=== PATIENT | male | born 1940 | race Caucasian/White ===

== ENCOUNTER 2022-04-15 14:23 | Emergency (ER) | payer MEDICARE, SELFPAY ==
[2022-04-15 14:37] VITALS: BP 159/80; PULSE 65; RESP 18; TEMP 36.5; O2SAT 99; BMI 28.3
--- NOTE | 2022-04-15 14:51 | DI.CT.S_ITS ---
PROCEDURE: CT HEAD/BRAIN WO CON INDICATIONS: dizzy TECHNIQUE: Noncontrast 4.5 mm thick angled axial sections acquired from the foramen magnum to the vertex, with coronal and sagittal reformats. For radiation dose reduction, the following was used: automated exposure control, adjustment of mA and/or kV according to patient size. COMPARISON: None. FINDINGS: Image quality: Excellent. CSF spaces: Basal cisterns are patent. No extra-axial fluid collections. The ventricles are symmetric in size and shape. Brain: No intracranial bleeds or masses. There is cerebral volume loss for age, with resultant ventricular and sulcal prominence. There are periventricular and deep white matter chronic small vessel ischemic changes. There is intracranial internal carotid artery atherosclerosis. Skull and face: Calvarium and visualized facial bones appear intact, without suspicious lesions. Sinuses: Visualized sinuses and mastoids are clear. IMPRESSION: No acute intracranial finding. Dictated by: Linwood Osborn M.D. on 04/15/2022 at 15:20 Approved by: Linwood Osborn M.D. on 04/15/2022 at 15:21
--- NOTE | 2022-04-15 14:52 | DI.RAD.S_ITS ---
PROCEDURE: XR CHEST 1V INDICATIONS: Dizziness TECHNIQUE: One view of the chest was acquired. COMPARISON: None. FINDINGS: Surgical changes and devices: None. Lungs and pleura: Lungs are clear. No pleural effusions or pneumothorax. Mediastinum: Mediastinal contours appear normal. Heart size is normal. Bones and chest wall: No suspicious bony lesions. Overlying soft tissues appear unremarkable. IMPRESSION: No acute cardiopulmonary process demonstrated radiographically. Dictated by: Linwood Osborn M.D. on 04/15/2022 at 15:21 Approved by: Linwood Osborn M.D. on 04/15/2022 at 15:21
--- NOTE | 2022-04-15 15:02 | ED.DIZZY ---
HPI - Dizziness General Chief Complaint: Dizziness Stated Complaint: headache, vertigo, sent by [facility] Time Seen by Provider: 04/15/22 14:51 Source: patient Mode of arrival: Ambulatory History of Present Illness HPI Narrative: Patient is a 81-year-old male history of hypertension presenting today with dizziness. Says it is worse with position and mostly standing. No numbness tingling or weakness. He thinks it is vertigo though he is never had a history of vertigo. Denies any chest pain palpitations dizziness weakness or difficulty walking. He says it lasted for about 5 hours is very positional. No blurry vision. He is not taken anything for but now that he is in the emergency department his symptoms seem to have improved. No nausea or vomiting. No fever or chills. He is in his normal state of health yesterday. Related Data Allergies Allergy/AdvReac Type Severity Reaction Status Date / Time codeine Allergy Verified 04/15/22 14:48 lisinopril AdvReac Verified 04/15/22 14:48 Review of Systems Review of Systems ROS Unobtainable: All systems reviewed & are unremarkable except as noted in HPI and below Patient History Social History Smoking Status: Never smoker Smoking Status: Never smoker alcohol intake frequency: 3 or more drinks per day Substance Use Type: does not use Exam Initial Vital Signs Initial Vital Signs: Vital Signs Temperature 97.7 F 04/15/22 14:37 Pulse Rate 65 04/15/22 14:37 Respiratory Rate 18 04/15/22 14:37 Blood Pressure 159/80 H 04/15/22 14:37 Pulse Oximetry 99 04/15/22 14:37 Oxygen Delivery Method 04/15/22 14:37 GENERAL: Alert pleasant 81-year-old male and in no acute distress. HEENT: Head atraumatic,EOMI, pupils reactive, face symmetric, moist mucous membranes CARDIOVASCULAR: Regular rate and rhythm without murmurs, rubs or gallops. RESPIRATORY: Breath sounds equal bilaterally, no wheezes rales or rhonchi. ABDOMEN: Soft, nontender. Normoactive bowel sounds all 4 quadrants. No guarding or rebound. EXTREMITIES: Normal range of motion, no clubbing or edema. Neurovascularly intact NEUROLOGICAL: Alert and oriented x4.Normal gait and speech. Cranial nerves II through XII grossly intact. Good cyfdrr-fc-fjkr, good kbbm-au-wvqo, strength equal bilaterally, no dysarthria or aphasia, sensation in tact to soft touch bilaterally, no visual changes, no facial droop SKIN: Warm, dry, no laceration, no petechiae, no rashes or lesions. Scores NIH Stroke Scale Level of Conciousness: Alert, keenly responsive Ask month/age: Answers both questions correctly. Open/close eyes, close hand: Performs both tasks correctly Best gaze horizontal: Normal Visual urrutia: No visual loss Facial palsy: Normal symetrical movement Left arm drift: No drift for full 10 sec Right arm drift: No drift for full 10 sec Left leg drift: No drift for full 5 sec Right leg drift: No drift for full 5 sec Limb ataxia: Absent Sensory on face/arms/legs: Normal, no sensory loss Best language: No aphasia, normal Dysarthria: Normal Extinction or inattention: No abnormality Total NIH Stroke scale score: 0 Course Orders Ordered: Discontinued Medications Sodium Chloride (Normal Saline 0.9%) 1,000 mls @ 150 mls/hr IV CONT TORO Last Infusion: 04/15/22 19:01 Dose: 0 mls/hr Documented By: Admin: 04/15/22 15:35 Dose: 150 mls/hr Documented By: IRVIN Vital Signs Vital signs: Vital Signs - 8 hr 04/15/22 14:37 04/15/22 15:30 04/15/22 17:05 Temperature 97.7 F Pulse Rate 65 65 Respiratory Rate 18 Blood Pressure 159/80 H 182/85 H 196/84 H Pulse Oximetry 99 99 Oxygen Delivery Method Room Air Room Air 04/15/22 18:00 Temperature Pulse Rate 58 L Respiratory Rate 18 Blood Pressure 168/80 H Pulse Oximetry 99 Oxygen Delivery Method Room Air MDM - Dizziness Lab Data Result diagrams: 04/15/22 15:09 04/15/22 15:09 Labs: Lab Results 04/15/22 04/15/22 Range/Units 15:09 15:09 WBC 5.8 (4.5-11.0) X10^3/uL RBC 4.32 L (4.5-5.9) X10^6/uL Hgb 13.9 (13.5-17.5) g/dL Hct 40.8 L (41-53) % MCV 94.3 (80-100) fL MCH 32.1 (26-34) PG MCHC 34.1 (30-36) % RDW 13.2 (11.6-14.8) % Plt Count 212 (150-400) X10^3/uL Neut % (Auto) 66.5 (50-75) % Lymph % (Auto) 21.8 L (25-40) % Schuyler % (Auto) 7.0 (3-14) % Eos % (Auto) 4.2 H (2-4) % Baso % (Auto) 0.5 (0-2) % Neut # (Auto) 3900 (3592-4895) /uL Lymph # (Auto) 1300 (0249-6427) /uL Schuyler # (Auto) 400 (0-900) /uL Eos # (Auto) 200 (0-450) /uL Baso # (Auto) 0 (0-100) /uL Sodium 139 (137-145) mmol/L Potassium 4.0 (3.4-5.1) mmol/L Chloride 102 (98-107) mmol/L Carbon Dioxide 29 (22-32) mmol/L BUN 16 (9-20) mg/dL Creatinine 0.86 (0.66-1.25) mg/dL Estimated GFR > 60 (>60) mL/min BUN/Creatinine Ratio 18.6 (6-22) Glucose 114 H (80-110) mg/dL Calcium 9.3 (8.4-10.2) mg/dL Total Bilirubin 0.5 (0.2-1.3) mg/dL AST 28 (17-59) IU/L ALT 26 (<50) IU/L Alkaline Phosphatase 85 (38-126) U/L Total Creatine Kinase 60 (55-170) U/L CK-MB (CK-2) TNP CK-MB (CK-2) Rel Index TNP Troponin I < 0.012 (0.01-0.034) ng/mL Total Protein 7.7 (6.3-8.2) g/dL Lipase 89 (23-300) U/L Imaging Data CT scan - head: Radiologist's Impression: Aris pendleton MR#: [id number] : 1940 Acct:[id number] Age/Sex: 81 / M Date of Service: 04/15/22 Loc: ED Accession Number: [id number] ?? Procedure: CT head/brain wo con Ordering Provider: Carmenza Arevalo D.O. PROCEDURE:? CT HEAD/BRAIN WO CON ? INDICATIONS:? dizzy ? TECHNIQUE:? Noncontrast 4.5 mm thick angled axial sections acquired from the foramen magnum to the vertex, with coronal and sagittal reformats.? For radiation dose reduction, the following was used:? automated exposure control, adjustment of mA and/or kV according to patient size.? ? COMPARISON:? None. ? FINDINGS:? Image quality:? Excellent.? ? CSF spaces:? Basal cisterns are patent.? No extra-axial fluid collections.? The ventricles are symmetric in size and shape.? ? Brain:? No intracranial bleeds or masses.? There is cerebral volume loss for age, with resultant ventricular and sulcal prominence.? There are periventricular and deep white matter chronic small vessel ischemic changes.? There is intracranial internal carotid artery atherosclerosis.? ? Skull and face:? Calvarium and visualized facial bones appear intact, without suspicious lesions.? ? Sinuses:? Visualized sinuses and mastoids are clear.? ? IMPRESSION:? No acute intracranial finding. ? ? Dictated by: Linwood Osborn M.D. on 04/15/2022 at 15:20 ?? CTA - brain/neck: Radiologist's Impression: : Aris Cisneros MR#: [id number] : 1940 Acct:[id number] Age/Sex: 81 / M Date of Service: 04/15/22 Loc: ED Accession Number: [id number] ?? Procedure: CT angio head and neck Ordering Provider: Carmenza Arevalo D.O. PROCEDURE:? CT ANGIO HEAD AND NECK ? INDICATIONS:? dizzy ? TECHNIQUE:? Noncontrast images were performed earlier in the day and not repeated.? ? After the administration of intravenous contrast, 1 mm thick sections acquired from the aortic arch through the [place] of [place]varez.? Post-contrast 4.5 mm thick sections then re-acquired from the foramen magnum to the vertex.? 3-dimensional obmvgav-pckqjwnmt-snsxzlqifh (MIP) and/or volume rendering reformats were acquired of the central intracranial vasculature and neck separately. For radiation dose reduction, the following was used:? automated exposure control, adjustment of mA and/or kV according to patient size.? ? COMPARISON:? [facility], CT, CT HEAD/BRAIN WO CON, 04/15/2022, 15:00. ? FINDINGS:? Image quality:? Excellent.? ? BRAIN:? CSF spaces:? Ventricles are normal in size and shape.? Basal cisterns are patent.? No extra-axial fluid collections.? ? Brain:? No midline shift.? No intracranial bleeds or masses.? Marsh-white matter interface appears intact.? 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 ? Skull and face:? Calvarium and facial bones appear intact, without suspicious lesions.? Orbits appear normal.? ? Sinuses:? Sinuses and mastoids are clear.? ? HEAD CT ANGIOGRAPHY:? Anterior circulation:? Intracranial internal carotid arteries demonstrate atherosclerotic irregularity and calcification, with approximately 70% narrowing seen on each side.? The flow within the paired anterior cerebral arteries is normal and symmetric.? The flow within the middle cerebral arteries is normal and symmetric.? The anterior communicating artery is seen.? No aneurysms are seen.? ? Posterior circulation:? Visualized portions of the vertebral arteries demonstrate normal caliber, and join to form a normal appearing basilar artery.? Flow within the posterior cerebral arteries is normal and symmetric.? No aneurysms are seen.? ? NECK CT ANGIOGRAPHY:? Carotid system:? The great vessels demonstrate a conventional anatomy as they arise from the aortic arch.? The origins of the common carotid arteries appear patent.? The common carotid arteries demonstrate normal caliber and courses.? The bifurcation regions demonstrate atherosclerotic irregularity and calcification, with 30-40% narrowing involving the left proximal internal carotid artery and no significant stenosis seen on the right side. ? Posterior circulation:? The origins of the vertebral arteries both appear widely patent.? The more superior extracranial portions of both vertebral arteries also demonstrate normal courses and calibers.? They join to form a normal appearing basilar artery.? ? Soft tissues:? Visualized neck soft tissues demonstrate no suspicious abnormalities.? ? Bones:? No suspicious bony lesions.? Visualized cervical spine appears normally aligned.? At least moderate cervical spine degenerative change can be seen. ? ? ? IMPRESSION:? ? No imaging explanation is found for this patient's presenting symptoms.? ? Any quantitative measurements of stenosis were performed using NASCET criteria.? ? ? Dictated by: Austenstefany Horton M.D. on 04/15/2022 at 16:27 ? ? Chest x-ray: Radiologist's Impression: Signed Patient: Aris Cisneros MR#: [id number] : 1940 Acct:[id number] Age/Sex: 81 / M Date of Service: 04/15/22 Loc: ED Accession Number: [id number] ?? Procedure: XR chest 1V Ordering Provider: Carmenza Arevalo D.O. PROCEDURE:? XR CHEST 1V ? INDICATIONS:? Dizziness ? TECHNIQUE:? One view of the chest was acquired.? ? COMPARISON:? None. ? FINDINGS:? ? Surgical changes and devices:? None.? ? Lungs and pleura:? Lungs are clear.? No pleural effusions or pneumothorax.? ? Mediastinum:? Mediastinal contours appear normal.? Heart size is normal.? ? Bones and chest wall:? No suspicious bony lesions.? Overlying soft tissues appear unremarkable.? ? IMPRESSION:? No acute cardiopulmonary process demonstrated radiographically. ? ? Dictated by: Linwood Osborn M.D. on 04/15/2022 at 15:21 ? ? Approved by: Linwood Osborn M.D. on 04/15/2022 at 15:21 ? ECG Data Interpretation: Normal sinus rhythm rate 59 MS interval 184 QRS [address] changes no T-wave inversions no priors MDM Narrative Medical decision making narrative: Patient is an 81-year-old male history of hypertension presenting with sudden onset of dizziness. No focal deficits he was able to ambulate. Lasted for approximately 5 hours and now symptoms have completely resolved. He is noted to be hypertensive here in the emergency department which actually improves without any sort of intervention. Head CT and CT angio do not show any acute abnormality. Blood work is overall reassuring without signs of end-organ damage. Patient has absolutely no chest pain. He ambulated here in the ED without difficulty. Unclear exactly what is causing his dizziness. He was noted to be slightly hypertensive in the ED however not initially. Symptoms may or may not be related to the slightly elevated blood pressure. In his overall ready to go home. MDM CC: Dizziness Complicating co-morbidities: Hypertension Corroborating data: Data collected from: [ ] Medical records reviewed: [ ] Differential considered: Posterior CVA vertigo non vertigo, hypertensive emergency, CVA, TIA Exam documented above, pertinent findings include: No pertinent physical exam findings NIH stroke scale 0 Lab Test results independently reviewed as above. Pertinent findings: See above Independently reviewed EKG as above Imaging studies independently reviewed: Head CT and CT angio chest x-ray Consultations: None Treatments: None Re-evaluations: NIH stroke scale continues to be 0 awake alert and oriented. Blood pressure improved Discussion: As above Diagnosis: Dizziness no inversions Disposition: see below, along with detailed discharge instructions that have been reviewed with patient as well as indications for ED re-evaluation and additional outpatient follow up Discharge Plan Departure Patient Disposition: Home Clinical Impression: Vertigo Instructions: DI for Vertigo, DI for Dizziness-Nonvertigo Activity Restrictions/Additional Instructions: *You have been diagnosed with vertigo *What to do: At this time blood work and CT scans are reassuring. I encourage you to monitor blood pressure 1 to 2 times daily. And record the number please go over with your PCP medication may need to be adjusted *Continue to take medications as directed *Follow up with your primary care provider in 2-3 days or call [phone] *Return to ER if you should have worsening headache dizziness lightheadedness numbness tingling weakness chest pain shortness of or any new, worsening or concerning symptoms Referrals: Miscellaneous,Doctor, [Primary Care Provider] - Stand Alone Forms: Patient Portal/API
[2022-04-15 15:17] LABS: Add Manual Diff / Slide Review NO; Basophils Absolute Auto 0 /uL (0-100); Basophils Percent Auto 0.5 % (0-2); Eosinophils Absolute Auto 200 /uL (0-450); Eosinophils Percent Auto 4.2 % (2-4); Hematocrit 40.8 % (41-53); Hemoglobin 13.9 g/dL (13.5-17.5); Lymphocytes Absolute Auto 1300 /uL (1100-4500); Lymphocytes Percent Auto 21.8 % (25-40); Mean Corpuscular HGB Conc 34.1 % (30-36); Mean Corpuscular Hemoglobin 32.1 PG (26-34); Mean Corpuscular Volume 94.3 fL (80-100); Monocytes Absolute Auto 400 /uL (0-900); Neutrophils Absolute Auto 3900 /uL (1500-7000); Neutrophils Percent Auto 66.5 % (50-75); Platelet Count 212 X10^3/uL (150-400); Red Blood Cell Count 4.32 X10^6/uL (4.5-5.9); Red Cell Distribution Width 13.2 % (11.6-14.8); White Blood Cell Count 5.8 X10^3/uL (4.5-11.0)
[2022-04-15 15:30] VITALS: BP 182/85
[2022-04-15] MEDS: SODIUM CHLORIDE 0.9% 1,000 ML 150 ML IV (15:35)
[2022-04-15 15:36] LABS: Alanine Aminotransferase 26 IU/L (<50); Alkaline Phosphatase 85 U/L (38-126); Aspartate Aminotransferase 28 IU/L (17-59); BUN Creatinine Ratio 18.6 (6-22); Bilirubin Total 0.5 mg/dL (0.2-1.3); Blood Urea Nitrogen 16 mg/dL (9-20); Calcium 9.3 mg/dL (8.4-10.2); Carbon Dioxide 29 mmol/L (22-32); Chloride 102 mmol/L (98-107); Creatine Kinase 60 U/L (55-170); Estimated Glomerular Filt Rate > 60 mL/min (>60); Glucose 114 mg/dL (80-110); HEMOLYSIS < 15 (0-50); Lipase 89 U/L (23-300); Sodium 139 mmol/L (137-145); Total Protein 7.7 g/dL (6.3-8.2)
[2022-04-15 15:48] LABS: Troponin I < 0.012 ng/mL (0.01-0.034)
--- NOTE | 2022-04-15 16:07 | DI.CT.S_ITS ---
PROCEDURE: CT ANGIO HEAD AND NECK INDICATIONS: dizzy TECHNIQUE: Noncontrast images were performed earlier in the day and not repeated. After the administration of intravenous contrast, 1 mm thick sections acquired from the aortic arch through the [place] of Alvarez. Post-contrast 4.5 mm thick sections then re-acquired from the foramen magnum to the vertex. 3-dimensional hfssxyy-riazuuzta-tpixsyoeze (MIP) and/or volume rendering reformats were acquired of the central intracranial vasculature and neck separately. For radiation dose reduction, the following was used: automated exposure control, adjustment of mA and/or kV according to patient size. COMPARISON: [facility], CT, CT HEAD/BRAIN WO CON, 04/15/2022, 15:00. FINDINGS: Image quality: Excellent. BRAIN: CSF spaces: Ventricles are normal in size and shape. Basal cisterns are patent. No extra-axial fluid collections. Brain: No midline shift. No intracranial bleeds or masses. Marsh-white matter interface appears intact. 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 Skull and face: Calvarium and facial bones appear intact, without suspicious lesions. Orbits appear normal. Sinuses: Sinuses and mastoids are clear. HEAD CT ANGIOGRAPHY: Anterior circulation: Intracranial internal carotid arteries demonstrate atherosclerotic irregularity and calcification, with approximately 70% narrowing seen on each side. The flow within the paired anterior cerebral arteries is normal and symmetric. The flow within the middle cerebral arteries is normal and symmetric. The anterior communicating artery is seen. No aneurysms are seen. Posterior circulation: Visualized portions of the vertebral arteries demonstrate normal caliber, and join to form a normal appearing basilar artery. Flow within the posterior cerebral arteries is normal and symmetric. No aneurysms are seen. NECK CT ANGIOGRAPHY: Carotid system: The great vessels demonstrate a conventional anatomy as they arise from the aortic arch. The origins of the common carotid arteries appear patent. The common carotid arteries demonstrate normal caliber and courses. The bifurcation regions demonstrate atherosclerotic irregularity and calcification, with 30-40% narrowing involving the left proximal internal carotid artery and no significant stenosis seen on the right side. Posterior circulation: The origins of the vertebral arteries both appear widely patent. The more superior extracranial portions of both vertebral arteries also demonstrate normal courses and calibers. They join to form a normal appearing basilar artery. Soft tissues: Visualized neck soft tissues demonstrate no suspicious abnormalities. Bones: No suspicious bony lesions. Visualized cervical spine appears normally aligned. At least moderate cervical spine degenerative change can be seen. IMPRESSION: No imaging explanation is found for this patient's presenting symptoms. Any quantitative measurements of stenosis were performed using NASCET criteria. Dictated by: Austen Horton M.D. on 04/15/2022 at 16:27 Approved by: Austen Horton M.D. on 04/15/2022 at 16:31
[2022-04-15 17:05] VITALS: BP 196/84; PULSE 65; O2SAT 99
[2022-04-15 18:00] VITALS: BP 168/80; PULSE 58; RESP 18; O2SAT 99
[2022-04-17 16:29] LABS: Albumin 4.5 g/dL (3.5-5.0); Albumin Globulin Ratio 1.4 (1.0-2.8); Globulin 3.2 g/dL (1.7-4.1)
== END 2022-04-15 19:02 | disposition home or self-care (01) ==
PROVIDERS: Emergency Provider Emergency Medicine
DX: R42 Dizziness and giddiness (principal); I10 Essential (primary) hypertension
CPT/HCPCS: 36415; 70450; 70496; 70498; 71045; 80053; 82550; 83690; 84484; 85025; 93005; 96360; 96361; 99284; Q9967

== ENCOUNTER → 2023-08-17 12:28 | Outpatient (CLI) | payer MEDICARE, SELFPAY ==
--- NOTE | 2023-08-17 12:33 | DI.ECHO.S_ITS ---
[place] [facility]---------+ [facility] : : [address] : [address] : : [address] : : Phone: [phone] Echocardiogram Report + + :Name: DESHAUN KOEHLER Study Date: 08/17/2023 Height: 71 in : :Hospital ReadingLocation: Weight: 211 lb : : Gender: Male BSA: 2.2 m2 : :: 1940 Age: 82 yrs BP: 142/79 mmHg: :Reason For Study: DILATATION OF ASCENDING AORTA : :Ordering Physician: SAGAR, : :LOUIE Performed By: Susan Parker : :Referring: LOUIE KEITH : + + Interpretation Summary The left ventricle is normal in size. The left ventricular ejection fraction is normal. The ejection fraction is estimated to be 60-65%. Diastolic parameters suggest a pseudonormalization pattern, consistent with probable elevated filling pressures. The right ventricle is at the upper limits of normal in size. The right ventricular systolic function is normal. There is mild aortic regurgitation. The IVC is of normal diameter and collapses greater than 50% with a sniff. This suggests a low right atrial pressure of 3 mm Hg. The ascending aorta is mildly enlarged.4.1 cm in diameter. BSA: 2.2 m2 The aortic arch is at the upper limits of normal in size. Procedure: A two-dimensional transthoracic echocardiogram with color flow and Doppler was performed. The study quality was technically adequate. There is no prior echocardiogram noted for this patient. The patient was in sinus bradycardia with heart rates between 55-62 bpm during the exam. The patient had frequent PVCs during the exam. Left Ventricle: The left ventricle is normal in size. Proximal septal thickening is noted. There is no thrombus. The ejection fraction is estimated to be 60-65%. The left ventricular ejection fraction is normal. There are no focal wall motion abnormalities. Diastolic parameters suggest a pseudonormalization pattern, consistent with probable elevated filling pressures. Right Ventricle: The right ventricle is at the upper limits of normal in size. The right ventricular systolic function is normal. Atria: The left atrial size is normal. Right atrial size is normal. There is no Doppler evidence for an interatrial shunt. Mitral Valve: There is mild mitral annular calcification. There is trace mitral regurgitation. Aortic Valve: The aortic valve is trileaflet. The aortic valve is slightly calcified. There is mild aortic valve sclerosis. The peak aortic velocity is 2.0 m/sec. The aortic valve mean gradient is 9 mmHg. The calculated aortic valve area is 2.1 cm2. There is no hemodynamically significant valvular aortic stenosis. There is mild aortic regurgitation. Tricuspid Valve: The tricuspid valve is normal in structure and function. There is trace tricuspid regurgitation. Pulmonary artery pressures cannot be estimated because of the lack of a measurable TR jet velocity. Pulmonic Valve: The pulmonic valve leaflets are thin and pliable; valve motion is normal. There is trace pulmonic regurgitation. Great Vessels: The aortic root is normal size. The ascending aorta is mildly enlarged. The aortic arch is at the upper limits of normal in size. The IVC is of normal diameter and collapses greater than 50% with a sniff. This suggests a low right atrial pressure of 3 mm Hg. Pericardium/ Pleura There is no pericardial effusion. There is an anterior echo-free space consistent with a fat pad. There is no pleural effusion. MMode/2D Measurements & Calculations LVIDd: 5.1 cm LVOT diam: 2.2 cm LVIDs: 3.0 cm Ao root diam: 4.0 cm FS: 41.0 % asc Aorta Diam: 4.1 cm IVSd: 0.76 cm Ao Arch Diam (Prox Trans): 3.5 cm LVPWd: 0.73 cm LV escobar. diameter/BSA (cm/m^2): 2.4 LV sys. diameter/BSA (cm/m^2): 1.4 LA A2 area: 20.2 cm2 RA long axis: 5.5 cm LA A4 area: 24.3 cm2 RA area: 21.3 cm2 LA length (vol): 6.2 cm RA vol: 70.4 ml LA vol: 66.8 ml RA : 32.7 ml/m2 LA vol index: 31.0 ml/m2 IVC diam: 1.8 cm RVD1 (basal): 4.1 cm RVD2 (mid): 3.6 cm TAPSE: 2.0 cm Doppler Measurements & Calculations Ao V2 max: 201.8 cm/sec LVOT Max Mark: 110.0 cm/sec Ao V2 mean: 142.8 cm/sec LV V1 max P.8 mmHg Ao max P.3 mmHg LV V1 VTI: 26.0 cm Ao mean P.2 mmHg NATALIE(I,D): 2.0 cm2 Ao V2 VTI: 49.2 cm NATALIE(V,D): 2.1 cm2 sev ratio: 0.53 NATALIE indexed to BSA (cm^2/m^2): 0.94 MV E max mark: 90.3 cm/sec PA V2 max: 73.2 cm/sec MV A max mark: 76.4 cm/sec PA V2 mean: 52.1 cm/sec MV E/A: 1.2 PA mean P.2 mmHg Med Peak E' Mark: 5.3 cm/sec PA pr(Accel): 8.8 mmHg E/E' med: 17.0 Lat Peak E' Mark: 7.7 cm/sec E/E' lat: 11.7 E/e' average: 14.4 MV dec time: 0.29 sec SV(LVOT): 100.0 ml Reading Physician:04:05 PM
== END ==
PROVIDERS: PCP Student in an Organized Health Care Education/Training Program; Referring Provider Student in an Organized Health Care Education/Training Program; Visit Provider Student in an Organized Health Care Education/Training Program
DX: I08.0 Rheumatic disorders of both mitral and aortic valves (principal); I77.810 Thoracic aortic ectasia
CPT/HCPCS: 93306

== ENCOUNTER → 2024-05-26 13:40 | Outpatient (CLI) | payer MEDICARE, SELFPAY ==
--- NOTE | 2024-05-26 13:43 | DI.RAD.S_ITS ---
PROCEDURE: XR CALCANEOUS LT MIN 2V INDICATIONS: Achilles tendinitis, left leg TECHNIQUE: Two views of the calcaneus were acquired. COMPARISON: None. FINDINGS: Bones: No fractures or dislocations. No suspicious bony lesions. Plantar calcaneal enthesophyte. Coarse calcification within the Achilles tendon at the insertion. Soft tissues: No suspicious calcifications. Achilles tendon appears normal. 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 Plantar calcaneal enthesophyte. Dictated by: Tung Isaacs M.D. on 05/26/2024 at 15:41 Approved by: Tung Isaacs M.D. on 05/26/2024 at 15:42
== END ==
PROVIDERS: PCP Student in an Organized Health Care Education/Training Program; Referring Provider Family Medicine; Visit Provider Family Medicine
DX: M76.62 Achilles tendinitis, left leg (principal); M77.32 Calcaneal spur, left foot
CPT/HCPCS: 73650